=== PATIENT | female | born 1970 | race Caucasian/White ===

== ENCOUNTER 2020-01-11 13:32 | Emergency (ER) | payer OTHER, SELFPAY ==
[~2020-01-11 13:32] MED LIST: Iopamidol 370 76% 100 ML VIAL ONE
[2020-01-11] MEDS ORDERED: Morphine 4 MG/ML VIAL ONE (14:05)
[2020-01-11] MEDS ORDERED: Promethazine HCl 25 MG/ML VIAL ONE (14:06)
[2020-01-11] MEDS ORDERED: Sodium Chloride 0.9% 1,000 ML ONE (14:06)
[2020-01-11 14:23] LABS: Bilirubin Negative (Negative); Blood, Urine Negative (Negative); Clarity Clear (Clear); Glucose, Urine (Dipstick) Negative (Negative); Leukocyte Negative (Negative); Nitrite Negative (Negative); Protein, Urine (Dipstick) Negative (Neg-Trace); Urobilinogen 0.2 mg/dL (Less than 2)
[2020-01-11 14:46] LABS: #Basophils 0.1 thou/uL (0.0-0.2); #Lymphocytes 1.8 thou/uL (1.20-3.40); #Monocytes 0.7 thou/uL (0.11-0.59); #Neutrophils 4.1 thou/uL (1.40-6.50); %Basophils 1.8 % (0.0-1.0); %Eosinophils 0.5 % (0.0-10.0); %Monocytes 9.8 % (0.0-10.0); %Neutrophils 60.9 % (42.0-75.0); Hemoglobin 14.2 g/dL (12.0-16.0); Mean Corpuscular HGB CONC 31.3 g/dL (32.0-36.0); Mean Corpuscular Hemoglobin 28.8 pg (27.0-31.0); Mean Corpuscular Volume 92.1 fL (78.0-98.0); Mean Platelet Volume 7.9 fL (7.4-10.4); Platelet Count 289 thou/uL (130-400); Red Blood Cell (RBC) Count 4.92 mill/uL (4.20-5.40); White Blood Cell (WBC) Count 6.7 thou/uL (4.8-10.8)
--- NOTE | 2020-01-11 14:54 | RAD ---
EXAM: XR Abdomen 2 View/1 View Cxr PROVIDED CLINICAL HISTORY: Abdominal pain COMPARISON: Chest x-ray on 12/19/2012 FINDINGS: Cardiac silhouette and pulmonary vasculature are within normal limits. The lungs are clear. No free i ntraperitoneal air is seen beneath the hemidiaphragms. Surgical clips overlie the right upper quadrant. Phleboliths overlie the pelvis. No suspicious calcif ications are seen. Bowel gas pattern is nonspecific. There is partial sacralization of the left aspect of the L5 vertebral body with question of pseudoart iculation of the left lateral mass of L5 with S1. IMPRESSION: 1. Nonspecific bowel gas pattern. 2. No acute cardiopulmonary process. 3. Partial sacralization left aspect L5 vertebral body with suggestion of pseudoarticulation of the l eft lateral mass of L5 with S1.
[2020-01-11 15:01] LABS: ALT (SGPT) 23 U/L (8-55); AST (SGOT) 18 U/L (5-34); Albumin 4.4 g/dL (3.5-5.0); Alkaline Phosphatase 54 U/L (40-110); Anion Gap 15 mmol/L (10-20); BUN (Urea Nitrogen) 13 mg/dL (7.0-18.7); Bilirubin, Total 0.3 mg/dL (0.2-1.2); Calc. Creatinine Clearance 0 mL/min (70-130); Calcium 9.5 mg/dL (7.8-10.44); Carbon Dioxide 29 mmol/L (22-29); Chloride 101 mmol/L (98-107); Estimated GFR-MDRD 70; Globulin 2.3 g/dL (2.4-3.5); Glucose 87 mg/dL (70-105); Lipase 28 U/L (8-78); Potassium 3.8 mmol/L (3.5-5.1); Protein, Total 6.7 g/dL (6.0-8.3); Sodium 141 mmol/L (136-145)
[2020-01-11] MEDS ORDERED: Famotidine/PF 20 mg/2ml Vial ONE (15:16)
[2020-01-11] MEDS ORDERED: Mag-Al Plus 1200 MG/1200 MG/120 MG/30 ML UDCUP ONE (15:19)
[2020-01-11] MEDS ORDERED: Lidocaine Viscous Sol 2% 15 ml UD Cup ONE (15:19)
[2020-01-11] MEDS ORDERED: Morphine 2 MG/ML SYRINGE ONE (15:53)
--- NOTE | 2020-01-11 16:27 | CT ---
CT ABDOMEN AND PELVIS WITH CONTRAST: Comparison: None History: Patient is an alcoholic that drank a liter of margaritas last night has left upper quadrant abdominal pain that radiates to the back. Technique: Multiple contiguous axial images were obtained in a CT of the abdomen and pelvis with cont rast. Sagittal and coronal reformats were performed. FINDINGS: The gallbladder has been removed. The common bile duct is enlarged measuring 11 mm which may be a res ervoir effect from prior cholecystectomy. There is mild central intrahepatic biliary dilatation. Ther e is a subcentimeter hypodensity in the right lobe of the liver which is too small to definitely janey acterize, but may represent a small cyst. The kidneys, adrenal glands, spleen and pancreas are unremarkable. The patient is status post hysterectomy. The large and small bowel are unremarkable. No abdominal or pelvic lymphadenopathy are seen. The osseous structures, visualized inferior thorax and abdominal wall soft tissues are unremarkable. IMPRESSION: 1. No evidence of acute abdominal/pelvic abnormality. 2. There is enlargement of the biliary tree which is likely a reservoir effect from prior cholecystec esmer. POS: PJ
== END 2020-01-11 17:05 | disposition home or self-care (01) ==
LOC: NAV ERS 13:32
DX: K29.20 Alcoholic gastritis without bleeding (principal); K21.9 Gastro-esophageal reflux disease without esophagitis; F31.9 Bipolar disorder, unspecified; I10 Essential (primary) hypertension; Z79.899 Other long term (current) drug therapy
CPT/HCPCS: 74022; 74177; 80053; 81003; 83690; 84484; 85025; 85379; 93005; 96365; 96375; 96376; J2270; J2550; J7050; Q9967; S0028

== ENCOUNTER 2021-03-22 11:37 | Emergency (ER) | payer MEDICARE, SELFPAY | END 2021-03-22 12:28 | disposition home or self-care (01) | LOC: NAV ERS 11:37 | DX: M25.531 Pain in right wrist (principal); M77.8 Other enthesopathies, not elsewhere classified; I10 Essential (primary) hypertension; Z79.899 Other long term (current) drug therapy ==

== ENCOUNTER 2024-03-26 20:57 | Emergency (ER) | payer MEDICARE ==
[2024-03-26] MEDS ORDERED: traMADol HCl 50 MG TAB ONE (22:09)
== END 2024-03-26 22:26 | disposition home or self-care (01) ==
LOC: NAV ERS 20:57
DX: S06.0X0A Concussion without loss of consciousness, initial encounter (principal); S00.03XA Contusion of scalp, initial encounter; I10 Essential (primary) hypertension; Q04.6 Congenital cerebral cysts; W09.1XXA Fall from playground swing, initial encounter; Y93.89 Activity, other specified; Z79.899 Other long term (current) drug therapy
CPT/HCPCS: 70450; 72125